=== PATIENT | female | born 1940 | race Caucasian/White ===

== ENCOUNTER 2019-11-13 | Emergency (ER) | payer MEDICARE ==
[~2019-11-13] MED LIST: AMOXICILLIN500 MG PO; AMOXICILLIN875 MG OR; ASPIRIN LOW81 M1; BENZONATATE200 MG PO; CIPROFLOXACN500 MG PO; ECOTRIN325 MG OR; FLONASE NASAL50 MCG; HYZAAR1 TA1 OR; LEVAQUIN500 MG PO; PREDNISONE10 MG PO; PROBIOTIC1 TAB PO; TRAMADOL HCL50 MG OR; TRICOR145 MG OR; ZETIA10 MG PO; ZITIA; ZOFRAN ODT4 MG PO
[2019-11-13] MEDS ORDERED: DONEPEZIL5 MG PO (12:21)
[2019-11-13] MEDS ORDERED: PREVACID15 M3 PO (12:22)
[2019-11-13 12:24] LABS: HEMATOCRIT 46.7 % (37.0-47.0); HEMOGLOBIN 15.1 g/dl (12.0-16.0); IMMATURE GRANULOCYTES 0.4 % (0.0-5.0); MEAN CELL VOLUME 95.3 fL CALC (80.0-100.0); MEAN CORPUSCULAR HGB 30.8 pG CALC (26.0-32.0); MEAN CORPUSCULAR HGB CONC 32.3 g/L CALC (32.0-36.0); NEUT# 5.73 thou/uL (2.00-7.15); RED BLOOD COUNT 4.9 mill/uL (4.20-5.60); RED CELL DISTRI WIDTH 13.3 % (11.5-15.5)
[2019-11-13] MEDS ORDERED: TYLENOL PM PO (12:24)
[2019-11-13 12:30] LABS: URINE BILIRUBIN - DIPSTICK NEGATIVE (NEGATIVE); URINE BLOOD DIPSTICK LARGE (NEGATIVE); URINE COLOR YELLOW; URINE GLUCOSE - DIPSTICK NEGATIVE (NEGATIVE); URINE KETONE NEGATIVE (NEGATIVE); URINE NITRITE - DIPSTICK NEGATIVE (Negative); URINE PH 5.5 (4.5-8.0); URINE PROTEIN - DIPSTICK 30 mg/dL (NEG-TRACE); URINE SPECIFIC GRAVITY >=1.030; URINE UROBILINOGEN - DIPSTICK 0.2 E.U./dL (0.2)
[2019-11-13 12:31] LABS: URINE LEUK ESTERASE MODERATE (NEGATIVE)
[2019-11-13 13:07] LABS: ALBUMIN 4.5 g/dL (3.2-5.0); ALKALINE PHOSPHATASE 71 u/l (38-126); ANION GAP 16 (6-22 (CALC)); BILIRUBIN, TOTAL 0.7 mg/dL (0.0-1.4); BUN 22 mg/dL (8-23); BUN/CREATININE RATIO 33 (12-20 (CALC)); CARBON DIOXIDE 22 mmol/l (22-30); CHLORIDE 105 mmol/l (95-108); CREATININE 0.7 mg/dL (0.5-1.0); GFR > 60 ML/MIN (>=60 (CALC)); GFR FOR AFR.AMER. > 60 ML/MIN (>=60 (CALC)); LIPASE 30 u/l (23-300); POTASSIUM 4.1 mmol/l (3.5-5.1); SGOT/AST 26 u/l (9-36); SODIUM 138 mmol/l (137-146); TOTAL PROTEIN 7.5 g/dL (6.3-8.2)
[2019-11-13] MEDS ORDERED: LORTAB 5/3255 MG PO (14:25)
[2019-11-13] MEDS ORDERED: KEFLEX500 M1 PO (14:25)
[2019-11-13] MEDS ORDERED: TORADOL PO (14:25)
[2019-11-13] MEDS ORDERED: TAMSULOSIN0.4 MG PO (14:25)
== END 2019-11-13 14:51 | disposition home or self-care (01) ==
DX: N13.6 Pyonephrosis (principal); N20.0 Calculus of kidney; I49.9 Cardiac arrhythmia, unspecified; E11.9 Type 2 diabetes mellitus without complications; I10 Essential (primary) hypertension; Z87.442 Personal history of urinary calculi
CPT/HCPCS: Q9967